=== PATIENT | female | born 1955 | race Caucasian/White ===

== ENCOUNTER → 2021-06-25 01:26 | Outpatient (CLI) | payer OTHER, SELFPAY ==
[2021-06-26 20:43] LABS: SARS-CoV-2 RNA PCR Negative
== END ==
PROVIDERS: PCP Family Medicine
DX: Z01.812 Encounter for preprocedural laboratory examination (principal); Z20.822 Contact with and (suspected) exposure to COVID-19
CPT/HCPCS: C9803; U0003; U0005

== ENCOUNTER 2024-12-29 10:10 | Outpatient (CLI) | payer MEDICARE, OTHER, SELFPAY ==
--- NOTE | ~2024-12-29 | XR_ITS ---
3 VIEWS LUMBAR SPINE Ordering provider: Vinita Das MD History: . Sacrococcygeal disorders, not elsewhere classified . Comparison: None. FINDINGS: VERTEBRAL BODIES: No visible fracture or subluxation. Degenerative changes of the spine. DISK SPACES: Narrowing of the disc L4-L5 and L5-S1. Multilevel facet joint disease. SOFT TISSUES: Atherosclerotic changes of the aorta. Fecal material is loaded in the colon suggestive of constipation. IMPRESSION: No acute osseous abnormality lumbar spine. Multilevel degenerative disc disease. Reviewed, dictated and finalized at location A.
--- NOTE | ~2024-12-29 | XR_ITS ---
EXAMINATION: XR sacroiliac joints min 3V DATE: 12/29/2024 11:02 INDICATION: Sacrococcygeal disorders, not elsewhere classified. Low back pain. TECHNIQUE: 3 views of the sacroiliac joints were obtained. COMPARISON: None. FINDINGS: Alignment is normal. No fracture. There is mild osteoarthritis of the sacroiliac joints. Th ere is severe lumbar spondylosis. IMPRESSION: 1. Mild osteoarthritis of the sacroiliac joints. No evidence of inflammatory arthropathy. Reviewed, dictated and finalized at location L. IMPRESSION: 1. Mild osteoarthritis of the sacroiliac joints. No evidence of inflammatory ar thropathy.
== END 2024-12-29 10:11 | disposition home or self-care (01) ==
LOC: MICIMG 10:15
PROVIDERS: PCP Family Medicine; Visit Provider Family Medicine
DX: M53.3 Sacrococcygeal disorders, not elsewhere classified (principal); M46.1 Sacroiliitis, not elsewhere classified; M51.369 Other intervertebral disc degeneration, lumbar region without mention of lumbar back pain or lower extremity pain; M51.379 Other intervertebral disc degeneration, lumbosacral region without mention of lumbar back pain or lower extremity pain
CPT/HCPCS: 72110; 72202